=== PATIENT | male | born 1970 | race Hispanic/Latino ===

== ENCOUNTER 2018-05-02 00:38 | Inpatient (IN) | payer OTHER ==
[2018-05-02] VITALS (22 sets, daily range): BP systolic 87–115; BP diastolic 53–73
[~2018-05-02] VITALS: Ht 175.3 cm; Wt 12.2 kg
[2018-05-02] MEDS ORDERED: SODIUM CHLORIDE 0.9% 1000ML 1,000 ML IV ONE ×2 (01:24→03:18)
[2018-05-02 01:45] LABS: BASOPHILS % (AUTO) 0.2 % (0.0-5.0); EOSINOPHILS % (AUTO) 0.1 % (0.0-8.0); HEMATOCRIT 40.2 % (42-54); LYMPHOCYTES % (AUTO) 5.2 % (21.0-51.0); MEAN CORPUSCULAR HEMOGLOBIN 33.8 pg (27.0-33.0); MEAN CORPUSCULAR HGB CONC 34.9 g/dL (32.0-36.0); MEAN CORPUSCULAR VOLUME 96.9 fL (79-99); MONOCYTES % (AUTO) 6.6 % (3.0-13.0); NEUTROPHILS % (AUTO) 87.9 % (40.0-77.0); NUCLEATED RED BLOOD CELLS 0.1 % (0.0-0.19); PLATELET COUNT (AUTO) 244 K/uL (130-400); RED BLOOD CELL COUNT(AUTO) 4.15 MIL/uL (4.50-6.20); WHITE BLOOD COUNT (AUTO) 20.2 K/uL (4.8-10.8)
[2018-05-02 01:46] LABS: APPEARANCE,URINE Clear (CLEAR); BILIRUBIN,URINE Small (NEGATIVE); COLOR,URINE Dark Yellow (YELLOW); GLUCOSE, URINE (UA) Negative (NEGATIVE); KETONES,URINE Trace mg/dL (NEGATIVE); LEUKOCYTE ESTERASE ,URINE Trace (NEGATIVE); NITRATE,URINE Negative (NEGATIVE); OCCULT BLOOD,URINE Negative (NEGATIVE); PH,URINE 5.5 (5.0-8.0); PROTEIN,URINE POS 1+ (NEGATIVE)
[2018-05-02 01:56] LABS: CREATININE 1.3 mg/dL (0.5-1.5); POTASSIUM 3.7 mmol/L (3.5-5.1)
[2018-05-02 02:00] LABS: ALBUMIN 3.5 g/dL (3.5-5.0); BILIRUBIN,TOTAL 0.8 mg/dL (0.2-1.0); TOTAL PROTEIN, SERUM 8.2 g/dL (6.0-8.3)
[2018-05-02] MEDS ORDERED: IOHEXOL-350 75 ML VIAL IV ONE (02:00)
[2018-05-02 02:19] LABS: BACTERIA,URINE None Seen /HPF (None Seen); MUCUS,URINE Moderate LPF (None Seen); SQUAMOUS EPITHELIAL CELL,UR Moderate /HPF (0-2)
[2018-05-02] MEDS ORDERED: MORPHINE SULFATE 4 MG/1ML SYG ONE (03:18)
[2018-05-02] MEDS ORDERED: ZOSYN 3.375GM+NS 50ML 50 ML IV ONE (03:18)
[2018-05-02] MEDS ORDERED: ONDANSETRON HCL 4 MG/2 ML VIAL ONE (03:18)
[2018-05-02] MEDS ORDERED: MORPHINE SULFATE 2 MG/ML 1ML SYG IVP PRN (05:30)
[2018-05-02] MEDS ORDERED: LACTATED RINGERS 1000ML 1,000 ML IV SCH (05:30)
[2018-05-02] MEDS ORDERED: ONDANSETRON HCL MDV 20ML 2 MG/ML VIAL IVP PRN (05:30)
[2018-05-02] MEDS ORDERED: PHARMACY COMMUNICATION MISC SCH (05:30)
[2018-05-02] MEDS: ZOSYN 3.375GM+NS 50ML 50 ML IV SCH ×3 (06:00→17:58)
[2018-05-02] MEDS ORDERED: SODIUM CHLORIDE 0.9% 500ML 500 ML IV ONE (06:47)
[2018-05-02] MEDS ORDERED: LACTATED RINGERS 1000ML 1,000 ML IV ONE (07:51)
[2018-05-02] MEDS ORDERED: MIDAZOLAM HCL 1 MG/ML 2ML VIAL ONE (09:56)
[2018-05-02] MEDS ORDERED: FENTANYL CITRATE PF 50 MCG/1 ML 2ML VIAL ONE (09:57)
[2018-05-02] MEDS ORDERED: SUCCINYLCHOLINE 200MG/10ML SYR ONE (09:58)
[2018-05-02] MEDS ORDERED: PROPOFOL 10 MG/ML 20ML VIAL IV ONE (09:58)
[2018-05-02] MEDS ORDERED: ROCURONIUM 10MG/1ML SYR 10 MG/ML ML ONE ×2 (09:58→10:40)
[2018-05-02] MEDS ORDERED: FENTANYL CITRATE PF 50 MCG/1 ML 5ML AMP IV ONE (10:22)
[2018-05-02] MEDS ORDERED: GLYCOPYRROLATE 1 MG/5 ML SYRINGE ONE (11:14)
[2018-05-02] MEDS ORDERED: NEOSTIGMINE 5MG/5ML SYR IV ONE (11:14)
[2018-05-02] MEDS: LACTATED RINGERS 1000ML 1,000 ML IV SCH ×2 (11:17→13:40)
[2018-05-02] MEDS: ACETAMINOPHEN-CODEINE 300/30MG TAB PO PRN ×2 (17:34→23:37)
[2018-05-02] MEDS ORDERED: ACETAMINOPHEN 325 MG TAB ONE (18:23)
[2018-05-02] MEDS: ACETAMINOPHEN 325 MG TAB PO PRN (18:41)
--- NOTE | 2018-05-02 18:41 | NUR ---
TEMP 102.[address] Felix cesar to notify him of gram negative rods in abdominal culture and of fever at 102.9 orally. Orders for tylenol, blood cultures and to keep on zosyn. patient with slight chills. No other symptom. Denies feeling any major feelings of discomfort.
[2018-05-03] MEDS: ACETAMINOPHEN 325 MG TAB PO PRN ×2 (00:18→12:50)
[2018-05-03 04:04] VITALS: BP 106/57
[2018-05-03] MEDS: ZOSYN 3.375GM+NS 50ML 50 ML IV SCH ×3 (05:15→20:57)
[2018-05-03 07:00] VITALS: BP 112/68
[2018-05-03 11:00] VITALS: BP 123/76
[2018-05-03] MEDS: LACTATED RINGERS 1000ML 1,000 ML IV SCH ×2 (13:53→21:11)
--- NOTE | 2018-05-03 14:09 | NUR ---
MARGE Arriaga met with pt who lives with his mother Rabia Hood [phone]. Pt works, is independent, no DME or in home care services. Pt has no PCP and is on no regular medications at this time. Pt denies dc needs and plan is home at dc Addendum: 05/03/18 at 1411 by HUANG KELLER SS Amended: Links added.
[2018-05-03 16:00] VITALS: BP 106/79
[2018-05-03 19:15] VITALS: BP 129/77
[2018-05-04 00:28] VITALS: BP 121/77
[2018-05-04] MEDS: ACETAMINOPHEN 325 MG TAB PO PRN (01:08)
[2018-05-04] MEDS ORDERED: ONDANSETRON HCL 4 MG/2 ML VIAL ONE ×2 (03:09→19:56)
[2018-05-04 04:01] VITALS: BP 115/76
[2018-05-04] MEDS: ZOSYN 3.375GM+NS 50ML 50 ML IV SCH ×2 (05:26→13:37)
[2018-05-04] MEDS: LACTATED RINGERS 1000ML 1,000 ML IV SCH ×3 (05:26→20:02)
[2018-05-04 08:00] VITALS: BP 127/81
[2018-05-04 12:00] VITALS: BP 127/72
[2018-05-04 16:00] VITALS: BP 118/79
[2018-05-04 20:00] VITALS: BP 131/77
[2018-05-05] VITALS: BP 128/70
[2018-05-05] MEDS ORDERED: LORAZEPAM 2 MG/ML 1 ML VIAL IVP PRN (00:45)
[2018-05-05] MEDS ORDERED: ONDANSETRON HCL 4 MG/2 ML VIAL ONE (00:49)
[2018-05-05 04:00] VITALS: BP 122/75
[2018-05-05] MEDS: ZOSYN 3.375GM+NS 50ML 50 ML IV SCH ×4 (06:07→21:00)
[2018-05-05 07:00] VITALS: BP_SYST 106; BP_SYST 151; BP_DIAS 70; BP_DIAS 97
[2018-05-05] MEDS: LACTATED RINGERS 1000ML 1,000 ML IV SCH ×2 (09:45→21:00)
[2018-05-05 11:00] VITALS: BP 117/67
[2018-05-05 13:07] LABS: BASOPHILS % (AUTO) 0.3 % (0.0-5.0); EOSINOPHILS % (AUTO) 1.1 % (0.0-8.0); LYMPHOCYTES % (AUTO) 7.4 % (21.0-51.0); MEAN CORPUSCULAR HEMOGLOBIN 33.2 pg (27.0-33.0); MEAN CORPUSCULAR HGB CONC 34.6 g/dL (32.0-36.0); MEAN CORPUSCULAR VOLUME 95.8 fL (79-99); MONOCYTES % (AUTO) 6.9 % (3.0-13.0); NEUTROPHILS % (AUTO) 84.3 % (40.0-77.0); PLATELET COUNT (AUTO) 324 K/uL (130-400); RED BLOOD CELL COUNT(AUTO) 3.44 MIL/uL (4.50-6.20); RED CELL DISTRIBUTION WIDTH 13.2 % (11.0-15.5); WHITE BLOOD COUNT (AUTO) 9.2 K/uL (4.8-10.8)
[2018-05-05 13:24] LABS: CREATININE 0.8 mg/dL (0.5-1.5); POTASSIUM 3.3 mmol/L (3.5-5.1)
[2018-05-05 16:00] VITALS: BP 114/65
[2018-05-05 20:00] VITALS: BP 115/63
[2018-05-06] VITALS (7 sets, daily range): BP systolic 105–137; BP diastolic 55–75
[2018-05-06] MEDS: LACTATED RINGERS 1000ML 1,000 ML IV SCH ×3 (05:17→17:32)
[2018-05-06 06:02] LABS: BASOPHILS % (AUTO) 0.4 % (0.0-5.0); EOSINOPHILS % (AUTO) 1.9 % (0.0-8.0); HEMATOCRIT 34.1 % (42-54); LYMPHOCYTES % (AUTO) 10.7 % (21.0-51.0); MEAN CORPUSCULAR HEMOGLOBIN 33.4 pg (27.0-33.0); MEAN CORPUSCULAR HGB CONC 34.7 g/dL (32.0-36.0); MEAN CORPUSCULAR VOLUME 96.4 fL (79-99); MONOCYTES % (AUTO) 11.9 % (3.0-13.0); NEUTROPHILS % (AUTO) 75.1 % (40.0-77.0); NUCLEATED RED BLOOD CELLS 0.1 % (0.0-0.19); PLATELET COUNT (AUTO) 326 K/uL (130-400); RED BLOOD CELL COUNT(AUTO) 3.54 MIL/uL (4.50-6.20); RED CELL DISTRIBUTION WIDTH 13.4 % (11.0-15.5); WHITE BLOOD COUNT (AUTO) 8.9 K/uL (4.8-10.8)
[2018-05-06 06:11] LABS: POTASSIUM 3.5 mmol/L (3.5-5.1)
[2018-05-06] MEDS: ZOSYN 3.375GM+NS 50ML 50 ML IV SCH ×3 (06:14→21:23)
--- NOTE | 2018-05-06 14:08 | NUR ---
DR GONZALEZ CAME IN TO SEE THE PATIENT AND DISCUSSED PLAN OF CARE WITH HIM.
--- NOTE | 2018-05-06 14:30 | NUR ---
PATIENT WAS ENCOURAGED TO AMBULATE, HE SAID THAT HE AMBULATED IN THE ROOM AND HE WILL WALK AGAIN LATER.
[2018-05-07 04:00] VITALS: BP 110/76
[2018-05-07] MEDS: ZOSYN 3.375GM+NS 50ML 50 ML IV SCH ×3 (06:30→22:01)
[2018-05-07 08:01] VITALS: BP 116/73
--- NOTE | 2018-05-07 08:41 | NUR ---
ALERT AND AWAKE WITHOUT DISTRESS ON ROOM AIR, DENIES PAIN UPON ASSESSMENT. REPORTED FLATUS, VOIDING WITHOUT DIFFICULTY. PLAN OF CARE AND EXPECTED ACTIVITY DISCUSSED WITH THE PATIENT AND HE VERBALIZED UNDERSTANDING. NG TUBE IS IN PACE TO LIS DRAINING GREENISH COLORED BILE. CALL LIGHT AND PERSONAL BELONGINGS ARE PLACED WITHIN HIS REACH.
[2018-05-07 11:00] VITALS: BP 115/71
[2018-05-07] MEDS: LACTATED RINGERS 1000ML 1,000 ML IV SCH ×2 (11:42→22:02)
--- NOTE | 2018-05-07 12:30 | NUR ---
DR OROPEZA CAME IN TO ROUND ON THE PATIENT AND SPOKE TO HIM. PATIENT CURRENT STATUS WAS REPORTED TO MD. PER HER REQUEST THE PATIENT WAS ADDED TO HER CENSUS.
--- NOTE | 2018-05-07 14:10 | NUR ---
RLQ ABDOMINAL DRESSING CHANGE WAS PERFORMED AT THIS TIME. INCISION IS WELL APPROXIMATED WITH STAPPLES, AND THE ALY SITE IS INTACT. TOLERATED PROCEDURE WELL. VISITOR IS AT THE BEDSIDE.
[2018-05-07 16:00] VITALS: BP 129/81
--- NOTE | 2018-05-07 16:00 | NUR ---
AMBULATING IN THE HALLWAYS WITHOUT DIFFICULTY.
--- NOTE | 2018-05-07 17:59 | NUR ---
Nutrition Assessment: Pt triggered for nutrition screen based on LOS. Pt is currently NPO. Pt s/p open appendectomy. BMI 40.4 (morbid obese). LBM 05/06/18. Pt has rt abdomen incision. Recommend to advance diet as medically feasible. RD to monitor diet advancement. RD to f/u in 1-3 days. Addendum: 05/07/18 at [address] Amended: Links added.
[2018-05-07 19:40] VITALS: BP 118/75
[2018-05-07 22:59] VITALS: BP 112/61
[2018-05-08 04:00] VITALS: BP 126/69
[2018-05-08] MEDS: LACTATED RINGERS 1000ML 1,000 ML IV SCH ×2 (06:39→19:06)
[2018-05-08] MEDS: ZOSYN 3.375GM+NS 50ML 50 ML IV SCH ×3 (06:39→21:15)
[2018-05-08 08:00] VITALS: BP 126/69
[2018-05-08] MEDS ORDERED: METOCLOPRAMIDE 10 MG/2 ML VIAL IVP SCH (08:45)
[2018-05-08 12:00] VITALS: BP 136/81
[2018-05-08 16:00] VITALS: BP 125/79
[2018-05-08 20:23] VITALS: BP 106/73
[2018-05-08 23:36] VITALS: BP 117/76
[2018-05-09 03:38] VITALS: BP 127/76
[2018-05-09] MEDS: LACTATED RINGERS 1000ML 1,000 ML IV SCH ×3 (04:44→22:22)
[2018-05-09] MEDS: ZOSYN 3.375GM+NS 50ML 50 ML IV SCH ×3 (05:54→22:07)
[2018-05-09 08:43] VITALS: BP 129/80
[2018-05-09 12:25] VITALS: BP 122/81
[2018-05-09 16:37] VITALS: BP 125/68
[2018-05-09 20:00] VITALS: BP 128/80
[2018-05-09 23:32] VITALS: BP 131/77
[2018-05-10 04:00] VITALS: BP 125/77
[2018-05-10] MEDS: ZOSYN 3.375GM+NS 50ML 50 ML IV SCH ×3 (06:41→21:10)
[2018-05-10 08:35] VITALS: BP 124/73
[2018-05-10] MEDS: LACTATED RINGERS 1000ML 1,000 ML IV SCH ×2 (09:18→21:09)
[2018-05-10 12:16] VITALS: BP 122/71
--- NOTE | 2018-05-10 13:15 | NUR ---
NG TUBE DC PATIENT TOLERATED WELL. WILL CONTINUE TO MONITOR.
--- NOTE | 2018-05-10 15:13 | NUR ---
Nutrition f/u: Pt with diet advanced to full liquid diet. NGT currently clamped. Pt expected to continue tolerating diet and advancing diet therapy. [facility] 07/09. Recommendations: When medically feasible, advance diet therapy to Regular, low fat diet. Addendum: 05/10/18 at [address] Amended: Links added.
[2018-05-10 16:18] VITALS: BP 127/78
[2018-05-10 20:06] VITALS: BP 131/75
[2018-05-11 00:06] VITALS: BP 142/78
[2018-05-11 04:00] VITALS: BP 131/74
[2018-05-11] MEDS: ZOSYN 3.375GM+NS 50ML 50 ML IV SCH ×2 (06:09→13:15)
[2018-05-11] MEDS: LACTATED RINGERS 1000ML 1,000 ML IV SCH ×2 (06:09→15:46)
[2018-05-11 08:00] VITALS: BP 133/80
[2018-05-11 12:00] VITALS: BP 132/76
[2018-05-11 16:00] VITALS: BP 132/88
[2018-05-11 19:10] VITALS: BP 147/89
== END 2018-05-11 19:45 | disposition home or self-care (01) | DRG 339 ==
LOC: EDH 00:38 → EDHIP 00:39 → 3BH 12:40
PROVIDERS: ADMIT Surgery; ATTEND Surgery
PROC: 0DTJ0ZZ Resection of Appendix, Open Approach (ICD-10-PCS; principal; 2018-05-02 10:24)
DX: K35.33 Acute appendicitis with perforation, localized peritonitis, and gangrene, with abscess (principal); K56.7 Ileus, unspecified; E66.01 Morbid (severe) obesity due to excess calories
CPT/HCPCS: 36415; 74021; 74177; 80048; 80053; 81001; 83690; 85025; 87040; 87070; 87076; 87077; 87186; 87205; 88304; 99291; G0378; J0330; J2060; J2250; J2270; J2405; J2543; J2704; J2710; J2765; J3010; J3490; J7030; J7040; J7120; Q9967